=== PATIENT | male | born 1975 | race African-American/Black ===

== ENCOUNTER 2017-11-03 21:39 | Emergency (ER) | payer BC ==
[2017-11-03 21:51] VITALS: BP 135/82
[2017-11-03] MEDS ORDERED: CEPHALEXIN 500 MG CAPSULE PO ONE (22:30)
--- NOTE | 2017-11-03 22:33 | ER Document Report ---
HPI - HPI Patient complains to provider of: Skin rash Onset: Other - Greater than 6 months Onset/Duration: Worse Quality of pain: Burning Pain Level: 4 Context: Patient complains of mildly pruritic skin rash to left foot that has been there for over 6 months. Patient states he has been using a topical antifungal cream without any improvement of his symptoms. Patient states that the area has started to become tender over the past few days which prompted him to come in today. Patient does have an appointment with a primary doctor next week for evaluation of his foot. Associated Symptoms: Other - Rash to left foot and ankle. denies: Fever Exacerbated by: Denies Relieved by: Denies Similar symptoms previously: No Recently seen / treated by doctor: No - ROS ROS below otherwise negative: Yes Systems Reviewed and Negative: Yes All other systems reviewed and negative - CONSTITUTIONAL Constitutional: DENIES: Fever - EENT EENT: DENIES: Sore Throat, Ear Pain, Eye problems - RESPIRATORY Respiratory: DENIES: Trouble Breathing, Coughing - MUSCULOSKELETAL Musculoskeletal: REPORTS: Extremity pain, Swelling - DERM Skin Problems: Rash Past Medical History - General Information source: Patient - Social History Smoking Status: Never Smoker Frequency of alcohol use: None Drug Abuse: None Occupation: [employer] Lives with: Family Family History: Reviewed & Not Pertinent Patient has suicidal ideation: No Patient has homicidal ideation: No - Medical History Medical History: Negative Renal/ Medical History: Denies: Hx Peritoneal Dialysis Past Surgical History: Reports: Hx Herniorrhaphy - Immunizations Hx Diphtheria, Pertussis, Tetanus Vaccination: Yes Vertical Provider Document - CONSTITUTIONAL Agree With Documented VS: Yes Exam Limitations: No Limitations General Appearance: WD/WN, No Apparent Distress - INFECTION CONTROL TRAVEL OUTSIDE OF THE [place] IN LAST 30 DAYS: No - HEENT HEENT: Atraumatic, Normocephalic - NECK Neck: Normal Inspection, Supple - RESPIRATORY Respiratory: Breath Sounds Normal, No Respiratory Distress O2 Sat by Pulse Oximetry: 96 - CARDIOVASCULAR Cardiovascular: Regular Rate, Regular Rhythm Pulses: Normal: Dorsalis pedis - MUSCULOSKELETAL/EXTREMETIES Musculoskeletal/Extremeties: MAEW, FROM, Tender - Mild tenderness to dorsal aspect of left foot, Edema. negative: Eccymosis - NEURO Level of Consciousness: Awake, Alert, Appropriate Motor/Sensory: No Motor Deficit - DERM Integumentary: Warm, Dry, Rash - Patient with scaling plaque-like rash to the dorsum of left foot and circumferential around left ankle. Subtle erythema noted to the base of some areas of the rash concerning for developing cellulitis. Course - Re-evaluation Re-evalutation: 11/04/17 Patient with rash concerning for psoriasis type appearance. Patient encouraged to follow-up with his primary doctor for recheck as well as dermatology. Patient encouraged to keep foot dry as he frequently will sweat and continue to wear his boots. Patient does have some maceration between the toes of his foot and was instructed on how to keep his feet clean and dry. - Vital Signs Vital signs: Temp Pulse Resp BP Pulse Ox 98.6 F 90 16 135/82 H 96 11/03/17 21:50 11/03/17 21:50 11/03/17 21:50 11/03/17 21:50 11/03/17 21:50 Discharge - Discharge Clinical Impression: Skin rash Cellulitis Qualifiers: Site of cellulitis: extremity Site of cellulitis of extremity: lower extremity Laterality: left Qualified Code(s): L03.116 - Cellulitis of left lower limb Condition: Stable Disposition: HOME, SELF-CARE Instructions: Cellulitis ([facility]), Cephalexin ([facility]), Topical Steroid Cream or Ointment ([facility]) Additional Instructions: Return immediately for any new or worsening symptoms Followup with your primary care provider, call tomorrow to make a followup appointment 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
== END 2017-11-03 22:42 | disposition home or self-care (01) ==
LOC: ER 21:39
DX: L03.116 Cellulitis of left lower limb (principal); R21 Rash and other nonspecific skin eruption
CPT/HCPCS: 99282

== ENCOUNTER 2019-05-09 00:20 | Emergency (ER) | payer SELFPAY ==
[2019-05-09] MEDS ORDERED: NORMAL SALINE 1000 ML 1,000 ML IV ONE (02:17)
[2019-05-09] MEDS ORDERED: ONDANSETRON HCL INJ/PF 4 MG/2 ML SDV IV ONE (02:18)
[2019-05-09 02:25] LABS: ABSOLUTE LYMPHOCYTES (AUTO) 1.3 10^3/uL (0.5-4.7); ABSOLUTE MONOCYTES (AUTO) 0.7 10^3/uL (0.1-1.4); ABSOLUTE NEUT (AUTO) 12.4 10^3/uL (1.7-8.2); BASOPHILS % (AUTO) 0.1 % (0-2); EOSINOPHILS % (AUTO) 0.3 % (0-6); HEMATOCRIT 48.7 % (37.9-51.0); HEMOGLOBIN 15.6 g/dL (13.5-17.0); LYMPHOCYTES % (AUTO) 9.1 % (13-45); MEAN CORPUSCULAR HEMOGLOBIN 22.8 pg (27.0-33.4); MEAN CORPUSCULAR VOLUME 71 fl (80-97); MONOCYTES % (AUTO) 4.8 % (3-13); PLATELET COUNT 190 10^3/uL (150-450); RED BLOOD COUNT 6.82 10^6/uL (4.35-5.55); SEGMENTED NEUTROPHILS % (AUTO) 85.7 % (42-78); TOTAL CELLS COUNTED % (AUTO) 100 %; WHITE BLOOD COUNT 14.5 10^3/uL (4.0-10.5)
[2019-05-09 02:38] LABS: ALANINE AMINOTRANSFERASE 22 U/L (21-72); ALBUMIN 4.8 g/dL (3.5-5.0); ALKALINE PHOSPHATASE 81 U/L (38-126); ANION GAP 11 (5-19); ASPARTATE AMINO TRANSFERASE 25 U/L (17-59); BILIRUBIN,DIRECT 0.4 mg/dL (0.0-0.4); BILIRUBIN,TOTAL 0.8 mg/dL (0.2-1.3); BLOOD UREA NITROGEN 17 mg/dL (7-20); CALCIUM 9.9 mg/dL (8.4-10.2); CARBON DIOXIDE 29 mmol/L (22-30); CHLORIDE 100 mmol/L (98-107); GLUCOSE 118 mg/dL (75-110); LIPASE 39.8 U/L (23-300); POTASSIUM 4.7 mmol/L (3.6-5.0); SODIUM 139.8 mmol/L (137-145); TOTAL PROTEIN 8.5 g/dL (6.3-8.2)
[2019-05-09] MEDS ORDERED: ONDANSETRON ODT 4 MG TAB (6 TAB/ER DISP) PO PRN (03:04)
--- NOTE | 2019-05-09 03:04 | ER Document Report ---
ED General - General Chief Complaint: Abdominal Pain Stated Complaint: ABDOMINAL PAIN, VOMITTING Time Seen by Provider: 05/09/19 02:15 Primary Care Provider: KAYLEN RIOS FNP-C [Primary Care Provider] - Follow up in 3-5 days Notes: Patient is a 43-year-old male without chronic medical problems, no history of abdominal surgeries, presents with approximately 10 hours of upper abdominal discomfort as well as generalized abdominal cramping with associated nausea and vomiting. States that at approximately 1500 shortly after eating [employer] he began to have some nausea and cramping. States he had multiple episodes of nonbilious vomiting. States that symptoms came on relatively abruptly and have been easing off since arriving here in the emergency depart no obvious exacerbating or alleviating factors. Denies any abdominal pain at the time of my evaluation. States that when it was present it was a stabbing and cramping discomfort diffusely to his abdomen but most localized to the epigastrium. He denies ever having similar symptoms in the past. No diarrhea, melena or hematochezia. No fever. Has not seen his primary care physician regarding today's concerns. TRAVEL OUTSIDE OF THE [place] IN LAST 30 DAYS: No - Related Data Allergies/Adverse Reactions: No Known Allergies Allergy (Verified 05/09/19 00:21) Past Medical History - General Information source: Patient - Social History Smoking Status: Never Smoker Frequency of alcohol use: None Drug Abuse: None Lives with: Spouse/Significant other Family History: Reviewed & Not Pertinent Patient has suicidal ideation: No Patient has homicidal ideation: No Renal/ Medical History: Denies: Hx Peritoneal Dialysis Past Surgical History: Reports: Hx Herniorrhaphy - Immunizations Hx Diphtheria, Pertussis, Tetanus Vaccination: Yes Review of Systems - Review of Systems Notes: Constitutional: Negative for fever. HENT: Negative for sore throat. Eyes: Negative for visual changes. Cardiovascular: Negative for chest pain. Respiratory: Negative for shortness of breath. Gastrointestinal: Positive for abdominal pain, vomiting Genitourinary: Negative for dysuria. Musculoskeletal: Negative for back pain. Skin: Negative for rash. Neurological: Negative for headaches, weakness or numbness. 10 point ROS negative except as marked above and in HPI. Physical Exam - Vital signs Vitals: Temp Pulse Resp BP Pulse Ox 98.4 F 97 18 127/71 H 96 05/09/19 00:24 05/09/19 00:24 05/09/19 00:24 05/09/19 00:24 05/09/19 00:24 Interpretation: Normal Notes: PHYSICAL EXAMINATION: GENERAL: Well-appearing, well-nourished and in no acute distress. HEAD: Atraumatic, normocephalic. EYES: Pupils equal round and reactive to light, extraocular movements intact, sclera anicteric, conjunctiva are normal. ENT: nares patent, oropharynx clear without exudates. Moist mucous membranes. NECK: Normal range of motion, supple without lymphadenopathy LUNGS: Breath sounds clear to auscultation bilaterally and equal. No wheezes rales or rhonchi. HEART: Regular rate and rhythm without murmurs ABDOMEN: Soft, nontender, normoactive bowel sounds. No guarding, no rebound. No masses appreciated. EXTREMITIES: Normal range of motion, no pitting or edema. No cyanosis. NEUROLOGICAL: No focal neurological deficits. Moves all extremities spontan eously and on command. PSYCH: Normal mood, normal affect. SKIN: Warm, Dry, normal turgor, no rashes or lesions noted. Course - Re-evaluation Re-evalutation: 05/09/19 03:02 Patient presents with approximate 12 hours of generalized abdominal cramping, intermittent stabbing pain to his epigastrium which she states have been gradual ly improving since he arrived here in the emergency department without intervention. The patient has been able to tolerate oral intake here without difficulty. He has no focal tenderness on abdominal exam on 2 separate exams and no areas of rebound or guarding. Specifically he has no tenderness of the right lower quadrant or right lower quadrant. No epigastric tenderness. Denies any chest pain or shortness of breath. Labs unremarkable with exception of mild nonspecific leukocytosis. Advised patient that the exact etiology of his symptoms is uncertain but does not appear to be secondary to pancreatitis, biliary pathology, bowel obstruction, bowel perforation or acute appendicitis. Do not suspect an atypical presentation of ACS. Given that the patient is having improvement of his symptoms and is tolerating oral intake, has normal vitals, believe he is stable and appropriate for discharge. Patient and at bedside are in agreement, understand that a CT scan of the abdomen pelvis is likely an appropriate at this time and are in agreement with deferral but do understand that should his symptoms progress in any way he is to return to the emergency department. At this time will discharge with return precautions and follow-up recommendations. Verbal discharge instructions given a the bedside and opportunity for questions given. Medication warnings reviewed. Patient is in agreement with this plan and has verbalized understanding of return precautions and the need for primary care follow-up in the next 24-72 hours. - Vital Signs Vital signs: Temp Pulse Resp BP Pulse Ox 98.4 F 97 18 127/71 H 96 05/09/19 00:24 05/09/19 00:24 05/09/19 00:24 05/09/19 00:24 05/09/19 00:24 - Laboratory Result Diagrams: 05/09/19 01:35 05/09/19 01:35 Laboratory results interpreted by me: 05/09/19 05/09/19 01:35 01:35 WBC 14.5 H RBC 6.82 H MCV 71 L MCH 22.8 L RDW 15.0 H Seg Neutrophils % 85.7 H Lymphocytes % 9.1 L Absolute Neutrophils 12.4 H Creatinine 1.48 H Est GFR (Non-Af Amer) 51 L Glucose 118 H Total Protein 8.5 H Discharge - Discharge Clinical Impression: Abdominal cramping, Abdominal pain of unknown etiology Vomiting Qualifiers: Vomiting type: unspecified Vomiting Intractability: non-intractable Nausea presence: with nausea Qualified Code(s): R11.2 - Nausea with vomiting, unspecified Condition: Good Disposition: HOME, SELF-CARE Additional Instructions: You have been seen in the Emergency Department (ED) for abdominal pain with associated vomiting. Your evaluation did not identify a clear cause of your symptoms but was generally reassuring. You were having resolution of your abdominal pain at the time of my evaluation. Please follow up with your doctor as soon as possible regarding today's emergent visit and the symptoms that are bothering you. I would encourage you to follow within 24 to 48 hours. Return to the ED if your abdominal pain worsens or fails to improve, you develop bloody vomiting, bloody diarrhea, you are unable to tolerate fluids due to vomiting, fever greater than 101, or other symptoms that concern you. Referrals: KAYLEN RIOS, TANESHA-C [Primary Care Provider] - Follow up in 3-5 days
[2019-05-09 04:29] VITALS: BP 125/72
== END 2019-05-09 04:28 | disposition home or self-care (01) ==
LOC: ER 00:20
DX: R10.9 Unspecified abdominal pain (principal); R11.2 Nausea with vomiting, unspecified
CPT/HCPCS: 99284; 96361; 96374; 36415; 83690; 85025; 80053; J2405; J7030

== ENCOUNTER 2019-06-04 20:00 | Emergency (ER) | payer SELFPAY ==
[2019-06-04] MEDS ORDERED: IBUPROFEN 800 MG TABLET PO ONE (21:46)
--- NOTE | 2019-06-04 21:46 | ER Document Report ---
ED General - General Chief Complaint: Low Back Pain Stated Complaint: BACK PAIN Time Seen by Provider: 06/04/19 21:45 Primary Care Provider: KAYLEN RIOS FNP-C [COMMUNITY BASED STAFF] - Follow up in 3-5 days TRAVEL OUTSIDE OF THE [place] IN LAST 30 DAYS: No - HPI Notes: 44-year-old male to the emergency department with complaints of right upper back pain that began this morning. States that he had a normal morning where he took his child to school. When he got home he went to go sit on his bed and developed localized right upper back pain. He denies any new injury but does report that last week he was moving a dresser. He has not taken anything for the pain. His pain increases with movement and by deep breath. Denies cough, fevers cough chest pain, nausea, vomiting, diaphoresis. He is not diabetic, he does not smoke, he is not hypertensive. Recently been traveling, he denies any leg swelling. History of trapezius muscle pain and has been in physical therapy for that in the past. - Related Data Allergies/Adverse Reactions: No Known Allergies Allergy (Verified 06/04/19 20:01) Past Medical History - General Information source: Patient, Relative - Social History Smoking Status: Never Smoker Chew tobacco use (# tins/day): No Frequency of alcohol use: None Drug Abuse: None Family History: Reviewed & Not Pertinent Patient has suicidal ideation: No Patient has homicidal ideation: No Renal/ Medical History: Denies: Hx Peritoneal Dialysis Past Surgical History: Reports: Hx Herniorrhaphy - Immunizations Hx Diphtheria, Pertussis, Tetanus Vaccination: Yes Review of Systems - Review of Systems Constitutional: No symptoms reported EENT: No symptoms reported Cardiovascular: No symptoms reported. denies: Chest pain, Palpitations, Heart racing, Dizziness, Lightheaded, Edema Respiratory: denies: Cough, Short of breath Gastrointestinal: No symptoms reported Musculoskeletal: Back pain - upper right back pain Skin: No symptoms reported Neurological/Psychological: No symptoms reported -: Yes All other systems reviewed and negative Physical Exam - Vital signs Vitals: Temp Pulse Resp BP Pulse Ox 98.1 F 83 20 141/87 H 97 06/04/19 20:09 06/04/19 20:09 06/04/19 20:09 06/04/19 20:09 06/04/19 20:09 Interpretation: Hypertensive - General General appearance: Appears well, Alert - HEENT Head: Normocephalic, Atraumatic Eyes: Normal Pupils: PERRL - Respiratory Respiratory status: No respiratory distress Chest status: Nontender Breath sounds: Normal Chest palpation: Normal - Cardiovascular Rhythm: Regular Heart sounds: Normal auscultation Murmur: No - Abdominal Inspection: Normal Distension: No distension Bowel sounds: Normal Tenderness: Nontender Organomegaly: No organomegaly - Back Back: Normal, Tender - there is point TTP over the right rhomboid/trapezius at the level of T6. There is no TTP over the midline thoracic spine. No step off or crepitus.. No: Vertebra tenderness - Extremities General upper extremity: Normal inspection, Nontender, Normal color, Normal ROM, Normal temperature General lower extremity: Normal inspection, Nontender, Normal color, Normal ROM, Normal temperature, Normal weight bearing. No: Ramy's sign - Neurological Neuro grossly intact: Yes Cognition: Normal Orientation: AAOx4 Goff Coma Scale Eye Opening: Spontaneous Goff Coma Scale Verbal: Oriented Goff Coma Scale Motor: Obeys Commands Rylee Coma Scale Total: 15 Speech: Normal Motor strength normal: LUE, RUE, LLE, RLE Sensory: Normal - Psychological Associated symptoms: Normal affect, Normal mood - Skin Skin Temperature: Warm Skin Moisture: Dry Skin Color: Normal Course - Vital Signs Vital signs: Temp Pulse Resp BP Pulse Ox 98.3 F 71 16 135/91 H 99 06/04/19 22:30 06/04/19 22:30 06/04/19 22:30 06/04/19 22:30 06/04/19 22:30 - Diagnostic Test Radiology reviewed: Image reviewed Radiology results interpreted by me: 06/04/19 22:03 No acute fracture or no acute process in the chest - Transfer of Care Notes: 06/04/19 22:04 Impression: Rhomboid strain. XR reassuring. Has localized point tenderness to palpation of the mid right rhomboid. Will discharge home with pain meds and muscle relaxants. Patient agrees with the plan. Discharge - Discharge Clinical Impression: Rhomboid muscle strain Condition: Stable Disposition: HOME, SELF-CARE Instructions: Muscle Strain ([facility]) Additional Instructions: GENTLE STRETCHING. MAY APPLY HEAT TO THE BACK THREE TIMES A DAY FOR 20 MINUTES. FOLLOW UP WITH PRIMARY CARE. RETURN HERE IF WORSE. PUSH FLUIDS.. Prescriptions: Cyclobenzaprine HCl [Flexeril 10 mg Tablet] 10 mg PO TID #15 tablet Naproxen [Naprosyn] 500 mg PO BID #20 tablet Forms: Return to Work Referrals: KAYLEN RIOS FNP-C [COMMUNITY BASED STAFF] - Follow up in 3-5 days
[2019-06-04 22:34] VITALS: BP 135/91
--- NOTE | 2019-06-04 22:36 | RADIOLOGY REPORT (SQ) ---
EXAM DESCRIPTION: XR CHEST 2 VIEWS COMPLETED DATE/TME: 06/04/2019 21:45 CLINICAL HISTORY: upper back /rib pain COMPARISON: None FINDINGS: Cardiac silhouette is within normal limits. Linear opacities at the lower lungs may represent scar versus subsegmental atelectasis. Decreased lung volumes could be secondary to underinflation. There is no acute osseous process visualized. IMPRESSION: Linear opacities at the lower lungs may represent scar versus subsegmental atelectasis. Decreased lung volumes could be secondary to underinflation.
== END 2019-06-04 22:41 | disposition home or self-care (01) ==
LOC: ER 20:00
DX: S29.012A Strain of muscle and tendon of back wall of thorax, initial encounter (principal); X58.XXXA Exposure to other specified factors, initial encounter
CPT/HCPCS: 71046; 99283